=== PATIENT | female | born 1965 | race African-American/Black ===

== ENCOUNTER 2020-05-16 01:26 | Emergency (ER) | payer MEDICAID ==
[~2020-05-16] VITALS: Ht 154.9 cm; Wt 100.0 kg
[2020-05-16] MEDS ORDERED: HYDROCODONE/ACETAMINOPHEN 5/325MG TABLET PO STA (02:56)
[2020-05-16 03:31] LABS: BASOPHILS % 0.6 % (0.0-2.0); EOSINOPHILS % 1.1 % (0.0-5.0); HEMATOCRIT. 39.1 % (36.0-48.0); HEMOGLOBIN. 13.2 g/dL (12.0-16.0); LYMPHOCYTES % 20.3 % (20.0-50.0); MEAN CORPUSCULAR HEMOGLOBIN 29.5 pg (28.0-32.0); MEAN CORPUSCULAR VOLUME 87.7 fL (81.0-99.0); MEAN PLATELET VOLUME 7.2 fl (7.4-10.4); MONOCYTES % 7.9 % (2.0-8.0); NEUTROPHILS % 70.1 % (40.0-76.0); PLATELET 279 x1000/uL (130-400); RED BLOOD CELL COUNT 4.46 mill/uL (4.2-5.4); RED CELL DISTRIBUTION WIDTH 13.8 % (11.6-14.6)
[2020-05-16 03:32] LABS: CHLORIDE 106 mEq/L (98-107)
[2020-05-16 04:06] VITALS: BP 104/72
== END 2020-05-16 05:44 | disposition home or self-care (01) ==
LOC: ER 01:26
DX: R25.2 Cramp and spasm (principal); E11.9 Type 2 diabetes mellitus without complications; I10 Essential (primary) hypertension; Z88.8 Allergy status to other drugs, medicaments and biological substances; Z88.1 Allergy status to other antibiotic agents
CPT/HCPCS: 36415; 80048; 85025; 93005; 99283

== ENCOUNTER 2021-11-04 14:20 | Emergency (ER) | payer MEDICAID, OTHER ==
[~2021-11-04] VITALS: Ht 170.2 cm; Wt 120.0 kg
[2021-11-04] MEDS ORDERED: SODIUM CHLORIDE 0.9% 1,000 ML IV ONE (14:45)
[2021-11-04 14:59] LABS: BASOPHILS % 0.3 % (0.0-2.0); EOSINOPHILS % 1.9 % (0.0-5.0); HEMATOCRIT. 38.2 % (36.0-48.0); HEMOGLOBIN. 12.8 g/dL (12.0-16.0); LYMPHOCYTES % 29.9 % (20.0-50.0); MEAN CORPUSCULAR HEMOGLOBIN 29.1 pg (28.0-32.0); MEAN CORPUSCULAR VOLUME 86.8 fL (81.0-99.0); NEUTROPHILS % 59.9 % (40.0-76.0); PLATELET 259 x1000/uL (130-400); RED CELL DISTRIBUTION WIDTH 14.3 % (11.6-14.6)
[2021-11-04] MEDS ORDERED: ONDANSETRON HCL 4MG/2ML INJ IV ONE (15:00)
[2021-11-04 15:05] LABS: CHLORIDE 106 mEq/L (98-107)
[2021-11-04] MEDS ORDERED: POTASSIUM CHLORIDE 20MEQ TABLET SR PO NR (15:30)
[2021-11-04 18:01] LABS: CLARITY URINE CLEAR (CLEAR); COLOR URINE YELLOW (YELLOW); KETONES URINE NEGATIVE (NEGATIVE); LEUKOCYTE ESTERASE URINE NEGATIVE (NEGATIVE); NITRITE URINE NEGATIVE (NEGATIVE); OCCULT BLOOD URINE NEGATIVE (NEGATIVE); PH URINE 6.5 (4.5-8.0); PROTEIN URINE NEGATIVE (NEGATIVE); SPECIFIC GRAVITY URINE 1.017 (1.005-1.030); UROBILINOGEN URINE 0.2 E.U./dL (0.2-1.0)
[2021-11-04 19:12] VITALS: BP 155/96
== END 2021-11-04 19:25 | disposition short-term general hospital (02) ==
LOC: ER 14:42
DX: R55 Syncope and collapse (principal); E87.6 Hypokalemia; E11.9 Type 2 diabetes mellitus without complications; I10 Essential (primary) hypertension; Z20.822 Contact with and (suspected) exposure to COVID-19
CPT/HCPCS: 36415; 70450; 71045; 80053; 81003; 81025; 84484; 85025; 87426; 93005; 96374; 99285; C9803; J2405; J7030